=== PATIENT | male | born 1950 | race Caucasian/White ===

== ENCOUNTER 2016-05-08 11:21 | Inpatient (IN) ==
[2016-05-08] MEDS ORDERED: *HR* Enoxaparin 120 MG/0.8 ML SYRINGE SQ STA (11:31)
--- NOTE | 2016-05-08 11:37 | Emergency Department Note ---
Disposition Clinical Impression: Atrial flutter Qualifiers: Atrial flutter type: unspecified Qualified Code(s): I48.92 - Unspecified atrial flutter Disposition: Admitted As Inpatient Condition: Good Referrals: Isaias Andrea MD [Primary Care Provider] - Forms: ED Satisfaction Letter Time of Disposition: 12:26 Arrhythmia/Palpitations HPI - General Chief Complaint: ED Recheck/Abnormal Lab/Rx Stated Complaint: abnormal EKG Time Seen by Provider: 05/08/16 11:26 Source: patient, family Limitations: no limitations Nursing Notes Reviewed: Yes Vital Signs Reviewed: Yes - History of Present Illness HPI Narrative: 65-year-old presents with a rapid heartbeat for the last 3 months. Patient was seen at the urgent care and sent here for evaluation. Pt Subjective Complaint: rapid heart beat Onset (ago): month(s) (3) Duration: constant Severity: moderate Context: occurred during rest Associated symptoms: Denies: chest pain, shortness of breath - Related Data Home Medications Medication Instructions Recorded Confirmed Aspirin 04/28/16 Blood Pressure Medication 04/28/16 Multivitamin 04/28/16 Vicodin 04/28/16 Previous Rx's Medication Instructions Recorded Metoprolol Succinate 25 mg PO DAILY #30 tab.er.24h 04/28/16 Sulfamethoxazole/Trimeth DS 1 each PO BID #20 tablet 04/28/16 [Bactrim DS] Allergies Allergy/AdvReac Type Severity Reaction Status Date / Time No Known Allergies Allergy Verified 04/28/16 17:33 Constitutional: Denies: fever, chills, weakness, weight change Eyes: Denies: eye pain, eye discharge, vision change ENT ED: Denies: ear pain, throat pain, dental pain, hearing loss, epistaxis, congestion, dysphagia Cardiovascular: Reports: other (Tachycardia). Denies: chest pain, palpitations , dyspnea on exertion, edema, syncope Respiratory: Denies: cough, dyspnea, wheezes, hemoptysis, stridor Gastrointestinal: Denies: abdominal pain, nausea, vomiting, diarrhea, constipation, hematemesis, melena, hematochezia Genitourinary: Denies: urgency, dysuria, frequency, hematuria Musculoskeletal: Denies: back pain, neck pain, arthralgia, myalgia Integumentary: Denies: rash, abrasion, lesions Neurological: Denies: headache, weakness, numbness, paresthesias, confusion, abnormal gait, vertigo Psychiatric: Denies: anxiety, depression, suicidal thoughts, homicidal thoughts , auditory hallucinations, visual hallucinations Endocrine: Denies: fatigue Hematological/Lymphatic: Denies: easy bleeding, easy bruising Allergic/Immunologic: Denies: facial swelling, urticaria Past Medical History - Past Medical History Medical history: Reports: hypertension Surgical history: Reports: non-contributory Psychiatric history: Reports: no psych history - Social History Smoking Status: Never smoker Smokeless Tobacco Status: No Alcohol use: Reports: occasionally Drug use: Reports: none Physical Exam - General Limitations: no limitations General appearance: alert, in no apparent distress - Head Head exam: atraumatic, normocephalic, normal inspection - Eye Eye exam: Present: normal appearance, PERRL, EOMI - ENT ENT exam: normal exam, normal oropharynx, mucous membranes moist - Neck Neck exam: Present: normal inspection, full ROM, trachea midline - Chest Chest inspection: Present: normal inspection, symmetric chest wall rise - Respiratory Respiratory exam: Present: normal lung sounds bilaterally - Cardiovascular Cardiovascular exam: Present: regular rate, tachycardia - Abdominal Exam Abdominal exam: Present: soft, Non-Tender. Absent: tenderness, distention, guarding, rebound, rigidity - Extremities Exam Extremities exam: Present: normal inspection, full ROM. Absent: tenderness, pedal edema - Expanded Lower Extremity Exam Neurovascular/Tendon exam: Absent: motor deficit, sensory deficit, tendon deficit Gait: not tested/not observed - Neurological Exam Neurological exam: Present: alert, oriented X3 - Psychiatric Psychiatric exam: Present: normal affect, normal mood - Skin Skin exam: Present: warm, dry, intact, normal color Course - Consultations Consultation #1: Discussed with , we will start Cardizem and obtain an echo. Admit to the hospitalist. Time: 12:25 Consultation #2: Discussed with Dr. Beckman, admit Time: 12:28 Vital Signs Temperature 97.5 F L 05/08/16 11:22 Pulse Rate 136 05/08/16 11:22 Respiratory Rate 18 05/08/16 11:22 Blood Pressure 156/105 05/08/16 11:22 O2 Sat by Pulse Oximetry 98 05/08/16 11:22 Temperature 97.5 F L 05/08/16 11:22 Pulse Rate 137 05/08/16 12:03 Respiratory Rate 20 05/08/16 12:03 Blood Pressure 114/89 05/08/16 12:03 O2 Sat by Pulse Oximetry 98 05/08/16 12:03 Oxygen Delivery Oxygen Delivery Room Air Arrhythmia/Palpitations - Lab Data Result diagrams: 05/08/16 11:37 05/08/16 11:37 Lab Results 05/08/16 05/08/16 05/08/16 Range/Units 11:37 11:37 11:37 WBC 5.5 (4.3-11.1) K/mcL RBC 4.44 (4.19-5.50) M/mcL Hgb 14.3 (12.9-16.9) g/dL Hct 42.9 (37.5-50.1) % MCV 96.6 (83.0-100.0) fL MCH 32.2 (28.0-33.3) pg MCHC 33.3 (31.6-35.5) g/dL RDW 12.6 (11.5-14.5) % Plt Count 168 (140-400) K/mcL MPV 10.4 (9.4-12.4) fL Immature Gran % 0.5 (0-4) % Seg Neutrophils % 51.5 % Lymphocytes % 35.0 % Monocytes % 11.1 % Eosinophils % 1.5 % Basophils % 0.4 % Neutrophils # 2.8 (1.6-8.9) K/mcL Lymphocytes # 1.9 (0.6-4.6) K/mcL Monocytes # 0.6 (0.0-1.3) K/mcL Eosinophils # 0.1 (0.0-0.6) K/mcL Basophils # 0.0 (0.0-0.2) K/mcL PT 10.8 (9.4-12.1) Seconds INR 1.0 APTT 31.1 (26.0-36.0) Seconds Sodium 137 (136-145) mEq/L Potassium 5.0 H (3.5-4.5) mEq/L Chloride 105 (98-109) mEq/L Carbon Dioxide 21 (19-29) mEq/L BUN 15 (8-26) mg/dL Creatinine 1.09 (0.72-1.25) mg/dL Est GFR ( Amer) > 60 (> 60) Est GFR (Non-Af Amer) > 60 (> 60) BUN/Creatinine Ratio 14 (6-26) Glucose 117 H (70-99) mg/dL Calculated Osmolality 286 (280-300) Calcium 9.1 (8.6-10.8) mg/dL Troponin I (0-0.03) ng/mL TSH 0.744 (0.350-4.840) mcIU/mL 05/08/16 Range/Units 11:37 WBC (4.3-11.1) K/mcL RBC (4.19-5.50) M/mcL Hgb (12.9-16.9) g/dL Hct (37.5-50.1) % MCV (83.0-100.0) fL MCH (28.0-33.3) pg MCHC (31.6-35.5) g/dL RDW (11.5-14.5) % Plt Count (140-400) K/mcL MPV (9.4-12.4) fL Immature Gran % (0-4) % Seg Neutrophils % % Lymphocytes % % Monocytes % % Eosinophils % % Basophils % % Neutrophils # (1.6-8.9) K/mcL Lymphocytes # (0.6-4.6) K/mcL Monocytes # (0.0-1.3) K/mcL Eosinophils # (0.0-0.6) K/mcL Basophils # (0.0-0.2) K/mcL PT (9.4-12.1) Seconds INR APTT (26.0-36.0) Seconds Sodium (136-145) mEq/L Potassium (3.5-4.5) mEq/L Chloride (98-109) mEq/L Carbon Dioxide (19-29) mEq/L BUN (8-26) mg/dL Creatinine (0.72-1.25) mg/dL Est GFR ( Amer) (> 60) Est GFR (Non-Af Amer) (> 60) BUN/Creatinine Ratio (6-26) Glucose (70-99) mg/dL Calculated Osmolality (280-300) Calcium (8.6-10.8) mg/dL Troponin I 0.00 (0-0.03) ng/mL TSH (0.350-4.840) mcIU/mL
[2016-05-08 11:49] LABS: Basophils % 0.4 %; Eosinophils # 0.1 K/mcL (0.0-0.6); Eosinophils % 1.5 %; Hematocrit 42.9 % (37.5-50.1); Hemoglobin 14.3 g/dL (12.9-16.9); Immature Granulocytes % 0.5 % (0-4); Lymphocytes # 1.9 K/mcL (0.6-4.6); Mean Corpuscular HGB Conc 33.3 g/dL (31.6-35.5); Mean Corpuscular Hemoglobin 32.2 pg (28.0-33.3); Mean Corpuscular Volume 96.6 fL (83.0-100.0); Mean Platelet Volume 10.4 fL (9.4-12.4); Monocytes # 0.6 K/mcL (0.0-1.3); Monocytes % 11.1 %; Neutrophils # 2.8 K/mcL (1.6-8.9); Platelet Count 168 K/mcL (140-400); Red Blood Count 4.44 M/mcL (4.19-5.50); Red Cell Distribution Width 12.6 % (11.5-14.5); Segmented Neutrophils % 51.5 %
[2016-05-08 11:55] LABS: Prothrombin Time 10.8 Seconds (9.4-12.1)
[2016-05-08 11:58] LABS: Activated Partial Thrombo Time 31.1 Seconds (26.0-36.0)
[2016-05-08 11:59] LABS: BUN/Creatinine Ratio 14 (6-26); Blood Urea Nitrogen 15 mg/dL (8-26); Calcium 9.1 mg/dL (8.6-10.8); Carbon Dioxide 21 mEq/L (19-29); Chloride 105 mEq/L (98-109); Glucose 117 mg/dL (70-99); Osmolality,Calculated 286 (280-300); Sodium 137 mEq/L (136-145); eGFR For African Americans > 60 (> 60); eGFR For Non-African Americans > 60 (> 60)
[2016-05-08 12:20] LABS: Thyroid Stimulating Hormone 0.744 mcIU/mL (0.350-4.840)
--- NOTE | 2016-05-08 13:08 | Cardiology Consult Note ---
Addendum entered and electronically signed by Devin Vang CNP 05/08/16 13:47: Xarelto $360/month, not affordable. Plan to start Coumadin this afternoon and will refer to [facility]. Original Note: <Devin Vang - Last Filed: 05/08/16 13:04> Date of Encounter: 05/08/16 Time of Encounter: 13:05 Assessment and Plan (1) Atrial flutter with rapid ventricular response Current Visit: Yes Status: Acute A-Flutter RVR, rate 130s. Per pt, ongoing for the past 3 months. Asymptomatic. Denies chest pain, palpitations, dyspnea, lower extremity edema. Reports loud snoring at night--will need sleep study as outpt, as NAGA is likely. Excessive alcohol intake, 1/5 gallon/day. TSH 0.744, K 5.0, Mag 2.3. Obtain echo to evaluate structure and function. Cardizem gtt started for rate control. Uptitrate to keep HR <100. CHADSVASC 2 (Age, HTN). Recommend anticoagulation. Discussed Coumadin vs. NOACs. Will pimentel check Xarelto. Dose of therapeutic lovenox given. Will start heparin gtt tonight. Await echo results and pimentel check before starting NOAC. Continue to follow. (2) Current Visit: Yes Status: Acute Cessation counseling given. Currently drinks 1/5 gallon/day. ALT 45, AST 44. Discussion w patient/family: The assessment and plan as outlined above was discussed with the patient and/or family members who expressed understanding and agreement. All questions were answered. Thank you for involving us in the care of your patient. Please call with any questions. I will discuss all the above with Dr. Ponce and make changes as necessary. History of Present Illness Consult date: 05/08/16 Requesting physician: Herve Kam Consult reason: A-Flutter RVR Chief complaint: Palpitations History of present illness: Mr. Marie is a 65 year old male with PMH of HTN, alcohol abuse that presents from PCP office for A-Flutter with RVR. Per pt, HR has been 120s-130s for the past 3 months when checked at visits, but no EKG obtained until this AM. He denies dyspnea or chest pain. He is asymptomatic. He and report a lot of snoring at night--has never had a sleep study or been diagnosed with sleep apnea. He reports intake of whiskey daily--1/5 of a gallon. He denies lower extremity edema. HR currently 130s. Past Med Surg Social Fam HX - Past Medical History Medical history: hypertension Psychiatric history: no psych history - Past Surgical History Surgical History: non-contributory - Social History Smoking Status: Never smoker Smokeless Tobacco Status: No Alcohol use: occasionally, heavy (1/5 of whisky per day) Drug use: none Medications and Allergies Allopurinol [Zyloprim 100 MG] 100 mg PO QPM 05/08/16 [History] Amlodipine [Norvasc] 5 mg PO QAM 05/08/16 [History] Aspirin [Ecotrin] 325 mg PO QAM 05/08/16 [History] HYDROcodone/Acet 5/325 mg [[place] 5-325 mg] 1 tab PO Q6H PRN 05/08/16 [History] Lisinopril [Zestril] 20 mg PO QAM 05/08/16 [History] Loratadine [Allergy Relief] 10 mg PO QAM 05/08/16 [History] Metoprolol XL (24 HR) Succ [Toprol XL] 25 mg PO QPM 05/08/16 [History] Allergies No Known Allergies Allergy (Verified 04/28/16 17:33) All Systems Review: A 10-system review of systems was performed and is negative for pertinent findings except as documented above in the HPI. - Cardiovascular Cardiovascular: as per HPI, rapid heart rate Physical Examination Vital Signs, Last 4 Hours Pulse Resp BP Pulse Ox 05/08/16 12:54 96 20 116/75 97 05/08/16 12:45 20 114/89 Vital Signs Temp Pulse Resp BP Pulse Ox 05/08/16 12:54 96 20 116/75 97 05/08/16 12:45 20 114/89 05/08/16 12:03 137 20 114/89 98 05/08/16 11:40 133 20 143/98 96 05/08/16 11:22 97.5 F L 136 18 156/105 98 Intake and Output 05/07/16 05/08/16 05/08/16 23:59 07:59 15:59 Other: Weight 108.862 kg Patient Weight 05/08/16 23:59 Weight 108.862 kg General: Conversant, No Apparent Distress HEENT: Atraumatic, Normocephaly, Mucus Membranes Moist Neck: No JVD, Normal carotid pulses Cardiac: Other (irregular) Lungs: Normal Breath Sounds, No Wheeze, Rales, Rhonchi Neuro: Alert and responsive, No focal deficits noted Abdomen: Soft, Non-Tender Skin: No rashes noted on visualized skin Musculoskeletal: No Chest Wall Tenderness Extremities: No Clubbing, No Cyanosis, No Edema, Normal Pulses Results 05/08/16 11:37 05/08/16 11:37 Short CBC 05/08/16 Range/Units 11:37 WBC 5.5 (4.3-11.1) K/mcL Hgb 14.3 (12.9-16.9) g/dL Hct 42.9 (37.5-50.1) % Plt Count 168 (140-400) K/mcL Neutrophils # 2.8 (1.6-8.9) K/mcL BMP 05/08/16 Range/Units 11:37 Sodium 137 (136-145) mEq/L Potassium 5.0 H (3.5-4.5) mEq/L Chloride 105 (98-109) mEq/L Carbon Dioxide 21 (19-29) mEq/L BUN 15 (8-26) mg/dL Creatinine 1.09 (0.72-1.25) mg/dL Glucose 117 H (70-99) mg/dL Calcium 9.1 (8.6-10.8) mg/dL Cardiac Enzymes 05/08/16 Range/Units 11:37 Troponin I 0.00 (0-0.03) ng/mL Liver Function 05/08/16 Range/Units 11:37 AST 44 H (5-34) Units/L ALT 45 (0-55) Units/L Impressions Chest X-Ray 05/08/16 11:31 IMPRESSION: Stable chronic cardiomegaly, without acute airspace consolidation or CHF. D/ / 05/08/2016 12:12:07 Sancho Mann MD / bcarter Interpreting Provider: Sancho Mann MD Active Medications Diltiazem HCl 125 mg/ Dextrose 125 mls @ 5 mls/hr IVC .Q24H ANTHONY PRN Reason: 5 MG/HR Stop: 11/07/16 11:46 Last Admin: 05/08/16 11:57 Dose: 5 mg/hr, 5 mls/hr - Imaging and Cardiology Chest Xray: report reviewed - EKG Interpretation EKG results cardiology: personally reviewed (A-Flutter with RVR, rate 130s) Consult Discharge Plan - Plan Referrals: Isaias Andrea MD [Primary Care Provider] - <Vince Ponce - Last Filed: 05/08/16 14:03> Date of Encounter: 05/08/16 Assessment and Plan Discussion w patient/family: The assessment and plan as outlined above was discussed with the patient and/or family members who expressed understanding and agreement. All questions were answered. Thank you for involving us in the care of your patient. Please call with any questions. History of Present Illness History of present illness: Mr. Marie is a 65 year old male All Systems Review: A 10-system review of systems was performed and is negative for pertinent findings except as documented above in the HPI. Physical Examination Vital Signs, Last 4 Hours Temp Pulse Resp BP Pulse Ox 05/08/16 13:48 97.4 F L 136 14 134/88 97 05/08/16 12:54 96 20 116/75 97 05/08/16 12:45 20 114/89 Results 05/08/16 11:37 05/08/16 11:37 - Attending Attestation For this encounter, I have reviewed the MANAGER ADMINISTRATIVE or PA documentation, treatment plan, and medical decision making; and I have had face to face time with this patient. Pt here for an abnormal EKG denies any palpitations, CP , sob, syncope EKG in ER reviewed by me; appears to show aflutter 2:1. no signs of ischemia VSS JVD: 6.7 cm Chest : clear CVS: RRR , no murmur EKG: reviewed by me shows aflutter 2:1, did not slow with carotid massage Plan; anti coag a/w Cardiazem check echo watch for DTs ( etoh- most likely cause of afib) will probably need a sleep study on an op basis . Thanks !
[2016-05-08 13:14] LABS: Alanine Aminotransferase 45 Units/L (0-55); Aspartate Amino Transferase 44 Units/L (5-34); Magnesium 2.3 mg/dL (1.6-2.6)
[2016-05-08] MEDS ORDERED: Ondansetron 4 MG/2 ML VIAL IVP PRN (13:44)
[2016-05-08] MEDS ORDERED: Naloxone 0.4 MG/ML INJ IVP PRN (13:44)
[2016-05-08] MEDS ORDERED: *HR* LORazepam 2 MG/ML VIAL IVP PRN ×3 (13:50→15:48)
[2016-05-08] MEDS ORDERED: 0.9 % Sodium Chloride 1,000 ML ONE (13:54)
--- NOTE | 2016-05-08 13:55 | Internal Med History&Physical ---
Date of Encounter: 05/08/16 Time of Encounter: 12:50 Assessment and Plan (1) Atrial flutter with rapid ventricular response Current visit: Yes Status: Acute Aflutter with RVR at 120-130bpm Initially there was adequate control of rate with Cardizem 20mg IV bolus but is currently back in 130s Continue cardizem gtt, titrate to maintain HR<100 Patient received Lovenox 110mg (1mg/kg) SQ in the ER Cardiology eval appreciated Patient to be started on heparin drip this evening as per cardiology Outpatient anticoagulation as per cardiology f/u 2D echo (2) Alcohol abuse Current visit: Yes Status: Acute -Alcohol cessation counseling provided Patient does not see any harm in his behavior Will start Thiamine and Folic acid Closely monitor for alcohol withdrawal CIWA monitoring Ativan prn withdrawals (3) Hypertension Current visit: Yes Status: Chronic BP within acceptable range continue home medications Qualifiers: Hypertension type: essential hypertension Qualified Code(s): I10 - Essential (primary) hypertension (4) DVT prophylaxis Current visit: Yes Status: Acute Anticoagulated with Lovenox To start Heparin drip in evening Internal Medicine - H&P: HPI Chief complaint: sent from PMD for Aflutter Admitted From: Home Plans for Post Hospital Care: Home History of present illness: Mr. Marie is a 65 year old male with past medical history of hypertension, alcohol abuse, gout who was sent to the ER by PCP for evaluation of a flutter with RVR. As per patient, he has been having heart rate in 120s to 130s for the last 3 months every time he went to his primary care physician's office. She denies any symptoms, no chest pain, no shortness of breath, palpitations, dizziness, lightheadedness. He reports of drinking whiskey daily. At this time is resting comfortably in bed and states he feels well. Denies any headache, chest pain, shortness breath, abdominal pain, nausea, vomiting, fever , or chills. Past Med Surg Social Fam HX - Past Medical History Medical history: hypertension Psychiatric history: no psych history - Past Surgical History Surgical History: non-contributory - Social History Smoking Status: Never smoker Smokeless Tobacco Status: No Alcohol use: occasionally, heavy (1/5 of whisky per day) Drug use: none Internal Medicine - H&P: Meds Allopurinol [Zyloprim 100 MG] 100 mg PO QPM 05/08/16 [History] Amlodipine [Norvasc] 5 mg PO QAM 05/08/16 [History] Aspirin [Ecotrin] 325 mg PO QAM 05/08/16 [History] HYDROcodone/Acet 5/325 mg [[place] 5-325 mg] 1 tab PO Q6H PRN 05/08/16 [History] Lisinopril [Zestril] 20 mg PO QAM 05/08/16 [History] Loratadine [Allergy Relief] 10 mg PO QAM 05/08/16 [History] Metoprolol XL (24 HR) Succ [Toprol XL] 25 mg PO QPM 05/08/16 [History] Allergies No Known Allergies Allergy (Verified 04/28/16 17:33) All Systems PM: A 10-system review of systems was performed and is negative for pertinent findings except as documented above in the HPI. - Constitutional Constitutional: as per HPI - Constitutional Vitals: Temp Pulse Resp BP Pulse Ox 97.4 F L 136 14 134/88 97 05/08/16 13:48 05/08/16 13:48 05/08/16 13:48 05/08/16 13:48 05/08/16 13:48 General appearance: Present: A&O X 3, no acute distress, obese, answers questions appropriately - Head Head exam: Present: atraumatic, normocephalic - Eye Eye exam: Present: normal appearance, conjuntiva pink, sclera anicteric - Respiratory Respiratory exam: Present: CTAB. Absent: respiratory distress, wheezes - Cardiovascular Cardiovascular exam: Present: irregular rhythm, +S1, +S2, tachycardia - GI/Abdominal GI/Abdominal exam: Present: normal bowel sounds, soft. Absent: distended, tenderness - Extremities Exam Extremities exam: Present: warm, radial pulses palpable and symetrical. Absent : calf tenderness, pedal edema, tenderness - Neurological Exam Neurological exam: Present: alert, oriented X3 - Psychiatric Psychiatric exam: Present: normal affect, normal mood Internal Med - H&P Results - Labs CBC & Chem 7: 05/08/16 11:37 05/08/16 11:37
[2016-05-08] MEDS: Thiamine (B-1) 100 MG TABLET PO SCH (14:17)
[2016-05-08] MEDS: Folic Acid 1 MG TABLET PO SCH (14:17)
[2016-05-08] MEDS: Metoprolol XL (24 HR) Succ 25 MG TAB.ER.24H PO SCH (17:25)
[2016-05-08] MEDS ORDERED: *HR* Warfarin 7.5 MG TABLET PO ONE (18:00)
[2016-05-08] MEDS ORDERED: Warfarin perPT PO PRN (18:00)
[2016-05-08] MEDS: *HR* HYDROcodone/Acet 5/325 mg TABLET PO PRN (18:19)
[2016-05-09] MEDS ORDERED: *HR* Heparin 5,000 UNIT/ML VIAL IVP PRN (00:30)
[2016-05-09] MEDS ORDERED: *HR* Heparin 5,000 UNIT/ML VIAL IVP ONE (00:30)
[2016-05-09] MEDS: Heparin 25,000 UNIT/500 ML D5W 25,000 UNIT/500 ML MLS IVC SCH ×2 (02:40→18:07)
--- NOTE | 2016-05-09 08:13 | ECHO - Doppler Report ---
Echocardiogram Name: Marin Marie Date of Study: 05/08/2016 Date: 1950 Ht: 71.0 in Medical Record#: [id number] Age: 65 Wt: 240.0 lb Gender: Male BSA: 2.28 Order #: [id number] Location: [facility] Room #: [id number] Reading Physician: Heber Rooney DO, ASHLEE, JE CUBA [employer] Treasurer: Adriana Poe RDCS Ordering Physician: Devin Vang CNP Primary Physician: Isaias Andrea MD Indications: A-Flutter Impressions: Technically sub-optimal due to clinical status and poor windows. Atrial fluttern with RVR. Difficult to determined LV function due to suboptimal image quality and tachycardia. Overall, LV function appears mildly reduced, LVEF 45%. Mild global left ventricular systolic dysfunction. Indeterminate diastolic function. Mildly dilated right ventricle with normal appearing function. Moderate to severely dilated left atrium. No evidence of pulmonary hypertension identified. RVSP was not well obtained. No significant valvular disease identified. Recommend a repeat limited study with Definity to evaluate LV function when HR better controlled. Left Ventricular Wall Motion: Rest Echo Findings The apex, apical inferior, mid inferior, basal inferior, apical anterior, mid anterior, basal anterior, apical septal, mid inferior septal, basal inferior septal, apical lateral, mid anterior lateral, basal anterior lateral, mid anterior septal, mid inferior lateral, basal anterior septal and basal inferior lateral cat were hypokinetic. Findings: Study Quality * Technically sub-optimal due to clinical status and poor windows. ECG Findings * Atrial fluttern with RVR. Left Ventricle * Difficult to determined LV function due to suboptimal image quality and tachycardia. Overall, LV function appears mildly reduced, LVEF 45%. * Normal LV chamber size and wall thickness. * Mild global left ventricular systolic dysfunction. * Indeterminate diastolic function. Right Ventricle * Mildly dilated right ventricle with normal appearing function. Left Atrium * Moderate to severely dilated left atrium. Right Atrium * Moderate to severely dilated right atrium. Interatrial Septum * Interatrial septum not well evaluated. Aortic Valve * Aortic valve not well visualized. * No aortic regurgitation. * No aortic stenosis. Mitral Valve * Mildly thickened mitral valve leaflets. * Trace mitral regurgitation. * No mitral stenosis. Tricuspid Valve * Normal tricuspid valve structure and function. * Trace tricuspid regurgitation. * No evidence of pulmonary hypertension identified. RVSP was not well obtained. Pulmonic Valve * Pulmonic valve is not well visualized. Aorta * Normally sized aortic root. Pericardium * The pericardium appears normal. IVC * The IVC is not well evaluated. Pulmonary Artery * Normal visualized portions of the main pulmonary artery. History Hypertension Family History of CAD Measurements: BP: 119/ 80 2D Normal Values RVIDd: 3.17 cm <2.7 cm IVSd: .90 cm 0.6 - 1.0 cm LVIDd: 5.94 cm 3.7 - 5.6 cm LVPWd: 1.05 cm 0.6 - 1.1 cm LVIDs: 3.21 cm 1.5 - 3.6 cm AO: 3.30 cm < 4.0 cm LA: 4.70 cm 2.0 - 4.0cm %FS: 46.00 cm >25 % LA volume: 85 Mitral Valve Peak E:1.17 m/sec Peak E' Lat Prince:20.14 cm/s Peak E' Med Prince:13.6 cm/s E/E' Lat Ratio:5.8 E/E' Med Ratio:8.6 Tricuspid Valve TV Regurg Peak Grad: 12.00mmHg TV Regurg Peak Prince: 1.71m/sec Updated by Heber Rooney DO, FACJonas, JE CUBA on 05/09/2016 8:05:57 AM electronically signed on 05/09/2016 8:07:01 AM with status of Final Wall Motion Monte: 1=Normal, 2=Hypokinesis, 3=Akinesis, 4=Dyskinesis, 5=Aneurysmal, 6=Hyperkinetic, X=Not Visualized (Blank)=Missing
[2016-05-09] MEDS: Thiamine (B-1) 100 MG TABLET PO SCH (08:43)
[2016-05-09] MEDS: Lisinopril 20 MG TABLET PO SCH (08:43)
[2016-05-09] MEDS: Loratadine 10 MG TABLET PO SCH (08:43)
[2016-05-09] MEDS: Folic Acid 1 MG TABLET PO SCH (08:43)
[2016-05-09 08:54] LABS: Basophils % 0.6 %; Eosinophils # 0.1 K/mcL (0.0-0.6); Eosinophils % 0.7 %; Hematocrit 43.6 % (37.5-50.1); Hemoglobin 14.5 g/dL (12.9-16.9); Immature Granulocytes % 0.1 % (0-4); Lymphocytes # 2.1 K/mcL (0.6-4.6); Lymphocytes % 30.3 %; Mean Corpuscular HGB Conc 33.3 g/dL (31.6-35.5); Mean Corpuscular Volume 96.2 fL (83.0-100.0); Mean Platelet Volume 10.5 fL (9.4-12.4); Monocytes # 0.8 K/mcL (0.0-1.3); Monocytes % 12.1 %; Neutrophils # 3.9 K/mcL (1.6-8.9); Platelet Count 165 K/mcL (140-400); Red Blood Count 4.53 M/mcL (4.19-5.50); Red Cell Distribution Width 12.5 % (11.5-14.5); Segmented Neutrophils % 56.2 %
[2016-05-09 08:59] LABS: INR 1.1; Prothrombin Time 11.4 Seconds (9.4-12.1)
[2016-05-09] MEDS ORDERED: Aspirin Enteric Coated 325 MG Tablet PO SCH (09:00)
[2016-05-09] MEDS ORDERED: amLODIPine 5 MG TABLET PO SCH (09:00)
[2016-05-09 09:04] LABS: Activated Partial Thrombo Time 81.7 Seconds (26.0-36.0)
[2016-05-09 09:10] LABS: BUN/Creatinine Ratio 10 (6-26); Blood Urea Nitrogen 9 mg/dL (8-26); Calcium 9.5 mg/dL (8.6-10.8); Carbon Dioxide 22 mEq/L (19-29); Chloride 105 mEq/L (98-109); Chol/HDL Ratio 2.4 (0-4.9); Cholesterol 175 mg/dL (< 200); Glucose 119 mg/dL (70-99); HDL Cholesterol 74 mg/dL (40-59); LDL Cholesterol,Calculated 74 mg/dL (0-99); Magnesium 2.2 mg/dL (1.6-2.6); Osmolality,Calculated 284 (280-300); Phosphorous 3.5 mg/dL (2.3-4.7); Potassium 4.3 mEq/L (3.5-4.5); Sodium 137 mEq/L (136-145); Triglycerides 136 mg/dL (< 150); eGFR For African Americans > 60 (> 60); eGFR For Non-African Americans > 60 (> 60)
--- NOTE | 2016-05-09 10:23 | Internal Med Progress Note ---
Date of Encounter: 05/09/16 Time of Encounter: 10:21 - Assessment and plan (1) Atrial flutter with rapid ventricular response Current Visit: Yes Status: Acute Assessment and plan: A flatter with rapid ventricular response likely exacerbated by alcohol Continue metoprolol and Cardizem oral, may discontinue Cardizem drip later today if cardiology agrees Anticoagulation continued with heparin, Coumadin started May discharge in the morning if stable (2) Alcohol abuse Current Visit: Yes Status: Acute Assessment and plan: Continue Librium taper Use Ativan as needed (3) Hypertension Current Visit: Yes Status: Chronic Assessment and plan: Stable Qualifiers: Hypertension type: essential hypertension Qualified Code(s): I10 - Essential (primary) hypertension (4) Hyperkalemia Current Visit: Yes Status: Acute Assessment and plan: Resolved (5) DVT prophylaxis Current Visit: Yes Status: Acute - Time Spent With Patient Greater than 35 minutes - Subjective Interval history: The patient denies any palpitations, chest pain, shortness of breath, no abdominal pain, no dysuria. Says that he sweats a little bit when he does not drink - Constitutional Vitals: Temp Pulse Resp BP Pulse Ox 97.8 F 61 16 110/70 97 05/09/16 08:11 05/09/16 08:11 05/09/16 08:11 05/09/16 08:11 05/09/16 08:11 General appearance: Present: A&O X 3, no acute distress, obese, answers questions appropriately - Head Head exam: Present: atraumatic, normocephalic - Eye Eye exam: Present: PERRL, conjuntiva pink, sclera anicteric Pupils: Present: PERRL - Neck Neck exam general surgery: Present: supple, trachea midline. Absent: lymphadenopathy - Respiratory Respiratory exam: Present: CTAB. Absent: accessory muscle use, rales, rhonchi, wheezes - Cardiovascular Cardiovascular exam: Present: irregular rhythm, RRR, +S1, +S2, tachycardia. Absent: diastolic murmur, gallop, rubs, systolic murmur - GI/Abdominal GI/Abdominal exam: Present: normal bowel sounds, soft, no peritoneal signs. Absent: distended, tenderness - Extremities Exam Extremities exam: Present: warm, radial pulses palpable and symetrical. Absent : calf tenderness, cyanotic, pedal edema - Neurological Exam Neurological exam: Present: CN II-XII intact, oriented X3, no focal deficits. Absent: pronater drift, facial droop, speech deficit - Skin Skin exam: Present: dry, intact Internal Medicine: Result - Labs CBC & Chem 7: 05/09/16 08:40 05/09/16 08:40 Labs: Short CBC 05/09/16 Range/Units 08:40 WBC 6.9 (4.3-11.1) K/mcL Hgb 14.5 (12.9-16.9) g/dL Hct 43.6 (37.5-50.1) % Plt Count 165 (140-400) K/mcL Neutrophils # 3.9 (1.6-8.9) K/mcL BMP 05/09/16 08:40 Sodium 137 Potassium 4.3 Chloride 105 Carbon Dioxide 22 BUN 9 Creatinine 0.88 Glucose 119 H Calcium 9.5 - ABG Interpretation ABG results: PT/INR, D-dimer PT 11.4 Seconds (9.4-12.1) 05/09/16 08:40 Consult Discharge Plan - Plan Referrals: Isaias Andrea MD [Primary Care Provider] -
[2016-05-09] MEDS: Diltiazem CD (24hr) 240 MG CAPSULE PO SCH (10:29)
--- NOTE | 2016-05-09 10:35 | Cardiology Progress Note ---
Date of Encounter: 05/09/16 Time of Encounter: 10:33 Assessment and Plan (1) Atrial flutter with rapid ventricular response Current Visit: Yes Status: Acute A-Flutter RVR, rate 130s. Per pt, ongoing for the past 3 months. Asymptomatic. Denies chest pain, palpitations, dyspnea, lower extremity edema. Reports loud snoring at night--will need sleep study as outpt, as NAGA is likely. Excessive alcohol intake, 1/5 gallon/day. TSH and electrolytes normal. Echo was technically suboptimal due to clinical status and poor windows--in A- Flutter with RVR. EF appears mildly reduced EF 45%--mild global. Mildly dilated RV, mod-severely dilated LA, no significant valvular dysfunction. Mildly reduced EF likely tachycardia and alcohol induced, as he has reportedly been in RVR over the past 3 months. Denies chest pain. No ischemic work-up necessary at this time. Will recheck limited echo today now that he is rate controlled. Cardizem gtt at 10mg/hr. HR 70s-90s on tele. 12 hour tele AVG HR 88--transition to PO Cardizem CD 240mg daily, D/C gtt 2 hours after PO dose. Continue Toprol XL 25mg daily. CHADSVASC 2 (Age, HTN). Recommend anticoagulation. Xarelto is not affordable--$ 360/month. Agrees to Coumadin with management [facility]. Referral sent. Coumadin was started last night--on heparin gtt. Continue to follow. (2) Alcohol abuse Current Visit: Yes Status: Acute Cessation counseling given. Management per primary service. (3) Hypertension Current Visit: Yes Status: Chronic Controlled. Stop Norvasc since he is on Cardizem. Qualifiers: Hypertension type: essential hypertension Qualified Code(s): I10 - Essential (primary) hypertension Discussion w patient/family: The assessment and plan as outlined above was discussed with the patient and/or family members who expressed understanding and agreement. All questions were answered. Thank you for involving us in the care of your patient. Please call with any questions. I will discuss all the above with Dr. Ponce and make changes as necessary. Subjective Principal diagnosis: A-Flutter RVR Interval history: Pt denies any complaints this AM. 12 hour tele AVG HR 88, A-Flutter. Currently on Cardizem gtt at 10mg/hr. Echo resulted--technically suboptimal due to clinical status and poor windows--in A-Flutter with RVR. EF appears mildly reduced EF 45%--mild global. Mildly dilated RV, mod-severely dilated LA, no significant valvular dysfunction. Objective Vital Signs, Last 4 Hours Temp Pulse Resp BP Pulse Ox 05/09/16 08:11 97.8 F 61 16 110/70 97 Vital Signs Temp Pulse Resp BP Pulse Ox 05/09/16 08:11 97.8 F 61 16 110/70 97 05/09/16 04:45 98.7 F 101 14 115/80 96 05/09/16 03:20 87 126/70 96 05/09/16 03:00 107 157/107 96 05/09/16 02:20 85 128/75 05/09/16 01:40 140/87 05/09/16 00:50 77 150/49 05/09/16 00:20 90 138/89 05/09/16 00:05 99 139/93 95 05/08/16 23:50 98.3 F 85 16 126/77 96 05/08/16 23:10 72 18 131/83 97 05/08/16 20:56 98.1 F 57 18 139/92 97 05/08/16 18:23 119/80 05/08/16 17:14 139 122/89 05/08/16 16:22 98.3 F 133 14 126/90 96 05/08/16 14:50 120 118/78 05/08/16 14:30 97 05/08/16 13:48 97.4 F L 136 14 134/88 97 05/08/16 12:54 96 20 116/75 97 05/08/16 12:45 20 114/89 05/08/16 12:03 137 20 114/89 98 05/08/16 11:40 133 20 143/98 96 05/08/16 11:22 97.5 F L 136 18 156/105 98 Intake and Output 05/08/16 05/09/16 05/09/16 23:59 07:59 15:59 Intake Total 355 / 355 95 / 95 830 / 830 Output Total 1675 / 1675 550 / 550 1350 / 1350 Balance -1320 / -1320 -455 / -455 -520 / -520 Intake: IV Fluids 115 / 115 / 95 30 / 30 Cardizem 125 MG In 115 / 115 95 / 95 30 / 30 Dextrose 5% 100 ML @ 5 MG /HR 5 mls/hr IVC .Q24H [facility] Rx#:[id number] Oral 240 / 240 800 / 800 Output: Urine 1675 / 1675 550 / 550 1350 / 1350 Other: Meal Dinner Breakfast Percent of Meal Consumed 100% 100% # Voids 2 General: Conversant, No Apparent Distress HEENT: Atraumatic, Normocephaly, Mucus Membranes Moist Neck: No JVD, Normal carotid pulses Cardiac: Other (irregular) Lungs: Normal Breath Sounds, No Wheeze, Rales, Rhonchi Neuro: Alert and responsive, No focal deficits noted Abdomen: Soft, Non-Tender Skin: No rashes noted on visualized skin Musculoskeletal: No Chest Wall Tenderness Extremities: No Clubbing, No Cyanosis, No Edema, Normal Pulses Results 05/09/16 08:40 05/09/16 08:40 Lab Results 05/08/16 05/09/16 05/09/16 22:29 08:40 08:40 WBC 6.9 Hgb 14.5 Hct 43.6 Plt Count 165 INR APTT 35.3 Sodium 137 Potassium 4.3 Chloride 105 Carbon Dioxide 22 BUN 9 Creatinine 0.88 Glucose 119 H Calcium 9.5 Magnesium 2.2 05/09/16 08:40 WBC Hgb Hct Plt Count INR 1.1 APTT 81.7 H D Sodium Potassium Chloride Carbon Dioxide BUN Creatinine Glucose Calcium Magnesium Short CBC 05/09/16 05/08/16 Range/Units 08:40 11:37 WBC 6.9 5.5 (4.3-11.1) K/mcL Hgb 14.5 14.3 (12.9-16.9) g/dL Hct 43.6 42.9 (37.5-50.1) % Plt Count 165 168 (140-400) K/mcL Neutrophils # 3.9 2.8 (1.6-8.9) K/mcL BMP 05/09/16 05/08/16 Range/Units 08:40 11:37 Sodium 137 137 (136-145) mEq/L Potassium 4.3 5.0 H (3.5-4.5) mEq/L Chloride 105 105 (98-109) mEq/L Carbon Dioxide 22 21 (19-29) mEq/L BUN 9 15 (8-26) mg/dL Creatinine 0.88 1.09 (0.72-1.25) mg/dL Glucose 119 H 117 H (70-99) mg/dL Calcium 9.5 9.1 (8.6-10.8) mg/dL Cardiac Enzymes 05/08/16 Range/Units 11:37 Troponin I 0.00 (0-0.03) ng/mL Liver Function 05/08/16 Range/Units 11:37 AST 44 H (5-34) Units/L ALT 45 (0-55) Units/L Impressions Chest X-Ray 05/08/16 11:31 IMPRESSION: Stable chronic cardiomegaly, without acute airspace consolidation or CHF. D/ / 05/08/2016 12:12:07 Sancho Mann MD / [email or web address] Interpreting Provider: Sancho Mann MD Active Medications Acetaminophen/Hydrocodone Bitart ([place] 5-325 Mg) 1 tab PO Q6H PRN PRN Reason: Pain Stop: 11/07/16 13:47 Last Admin: 05/08/16 18:19 Dose: 1 tab Allopurinol (Zyloprim) 100 mg PO QPM [facility] Stop: 11/07/16 18:01 Last Admin: 05/08/16 17:25 Dose: 100 mg Amlodipine Besylate (Norvasc) 5 mg PO QAM [facility] PRN Reason: Protocol Stop: 11/08/16 09:01 Last Admin: 05/09/16 08:43 Dose: 5 mg Aspirin (Aspirin Ec) 325 mg PO QAM [facility] Stop: 11/08/16 09:01 Last Admin: 05/09/16 08:43 Dose: 325 mg Chlordiazepoxide HCl (Librium) 25 mg PO QID [facility] Stop: 11/08/16 13:01 Diltiazem HCl (Cardizem Cd) 240 mg PO DAILY [facility] Stop: 11/08/16 10:01 Folic Acid (Folic Acid) 1 mg PO DAILY [facility] Stop: 11/07/16 14:01 Last Admin: 05/09/16 08:43 Dose: 1 mg Heparin Sodium (Porcine) (Heparin) 7,600 unit 70 unit/kg (7600 unit) IVP Q6HR PRN PRN Reason: SEE COMMENTS Stop: 11/08/16 00:31 Heparin Sodium (Porcine) (Heparin) 3,800 unit 35 unit/kg (3800 unit) IVP Q6H PRN PRN Reason: SEE COMMENTS Stop: 11/08/16 00:31 Heparin Sodium/Dextrose (Heparin 25,000 Unit/500 Ml D5w) 25,000 unit in 500 mls @ 30.481 mls/hr IVC .[id number] [facility]; 14 UNIT/KG/HR PRN Reason: Protocol Stop: 11/08/16 00:31 Last Admin: 05/09/16 02:40 Dose: 14 unit/kg/hr, 30.481 mls/hr Diltiazem HCl 125 mg/ Dextrose 125 mls @ 5 mls/hr IVC .Q24H [facility]; 5 MG/HR PRN Reason: Protocol Stop: 05/09/16 12:30 Last Admin: 05/09/16 09:07 Dose: 10 mg/hr, 10 mls/hr Lisinopril (Zestril) 20 mg PO QAM [facility] PRN Reason: Protocol Stop: 11/08/16 09:01 Last Admin: 05/09/16 08:43 Dose: 20 mg Loratadine (Claritin) 10 mg PO QAM [facility] PRN Reason: Protocol Stop: 11/08/16 09:01 Last Admin: 05/09/16 08:43 Dose: 10 mg Lorazepam (Ativan) 2 mg IVP Q4HR PRN PRN Reason: CIWA Score of 10-21 Stop: 11/07/16 15:49 Lorazepam (Ativan) 4 mg IVP Q4HR PRN PRN Reason: CIWA Score of 22-45 Stop: 11/07/16 15:49 Metoprolol Succinate (Toprol Xl) 25 mg PO QPM [facility] Stop: 11/07/16 18:01 Last Admin: 05/08/16 17:25 Dose: 25 mg Naloxone HCl (Narcan) 0.4 mg IVP Q2MIN PRN PRN Reason: Opioid Reversal Stop: 11/07/16 13:45 Ondansetron HCl (Zofran) 4 mg IVP Q6HR PRN PRN Reason: Nausea And Vomiting Stop: 11/07/16 13:45 Thiamine HCl (Vitamin B-1) 100 mg PO DAILY [facility] Stop: 11/07/16 14:01 Last Admin: 05/09/16 08:43 Dose: 100 mg Warfarin Sodium (Coumadin Perpt) 0 each PO DAILY@1800 PRN PRN Reason: SEE COMMENTS Stop: 11/07/16 18:01 - Imaging and Cardiology Echo: report reviewed - EKG Interpretation EKG results cardiology: other (12 hour tele AVG HR 88, A-Flutter.) Consult Discharge Plan - Plan Referrals: Isaias Andrea MD [Primary Care Provider] -
[2016-05-09] MEDS ORDERED: Perflutren Lipid Microsphere 1.3 ML in 0.9 % Sodium Chloride 8.7 ML IVP ONE (13:54)
[2016-05-09] MEDS ORDERED: Perflutren Lipid Microsphere 2 ML VIAL ONE (14:09)
--- NOTE | 2016-05-09 15:48 | ECHO - Doppler Report ---
Limited Echo with Imaging Enhancement Agent Name: Marin Marie Date of Study: 05/09/2016 Date: 1950 Ht: 71.0 in Medical Record#: [id number] Age: 65 Wt: 240.0 lb Gender: Male BSA: 2.28 Order #: [id number] Location: [facility] Room #: 2A47 Reading Physician: Heber Rooney DO, FACC, FASE, FASNC Load Haul Dump Operator: Sravani Bradford RVT Ordering Physician: Devin Vang CNP Primary Physician: Isaias Andrea MD Indications: Evaluate Ejection Fraction while heart rate is controlled Impressions: LVEF 45-50%. LV function is low normal/mildly reduced. Left Ventricular Wall Motion: Rest Echo Findings The apex, apical inferior, mid inferior, basal inferior, apical anterior, mid anterior, basal anterior, apical septal, mid inferior septal, basal inferior septal, apical lateral, mid anterior lateral, basal anterior lateral, mid anterior septal, mid inferior lateral, basal anterior septal and basal inferior lateral cat were hypokinetic. Findings: Study Quality * Technically adequate exam. ECG Findings * Atrial flutter. Left Ventricle * LVEF 45-50%. * Normal LV chamber size and wall thickness. LV function is low normal/mildly reduced. History Hypertension Family History of CAD 05-08-2016 a Previous Echo was performed. Contrast: Definity 1.3 ml in 8.7 ml of saline 2 ml. Measurements: BP: 116/ 78 2D Normal Values RVIDd: 4.00 cm <2.7 cm IVSd: 1.20 cm 0.6 - 1.0 cm LVIDd: 4.90 cm 3.7 - 5.6 cm LVPWd: 1.00 cm 0.6 - 1.1 cm LVIDs: 3.60 cm 1.5 - 3.6 cm AO: 3.40 cm < 4.0 cm LA: 5.30 cm 2.0 - 4.0cm %FS: 26.50 cm >25 % LA volume: Updated by Heber Rooney DO, FACC, FASE, FASNC on 05/09/2016 3:40:15 PM electronically signed on 05/09/2016 3:44:07 PM with status of Final Wall Motion [place]: 1=Normal, 2=Hypokinesis, 3=Akinesis, 4=Dyskinesis, 5=Aneurysmal, 6=Hyperkinetic, X=Not Visualized (Blank)=Missing
[2016-05-09] MEDS: *HR* Heparin 5,000 UNIT/ML VIAL IVP PRN (15:54)
[2016-05-09] MEDS ORDERED: *HR* Warfarin 7.5 MG TABLET PO ONE (17:00)
[2016-05-09] MEDS: Metoprolol XL (24 HR) Succ 25 MG TAB.ER.24H PO SCH (17:27)
[2016-05-09] MEDS: *HR* HYDROcodone/Acet 5/325 mg TABLET PO PRN (17:34)
[2016-05-10 06:01] LABS: INR 1.1; Prothrombin Time 11.5 Seconds (9.4-12.1)
[2016-05-10] MEDS: *HR* Heparin 5,000 UNIT/ML VIAL IVP PRN (06:17)
[2016-05-10] MEDS: Folic Acid 1 MG TABLET PO SCH (08:29)
[2016-05-10] MEDS: Lisinopril 20 MG TABLET PO SCH (08:29)
[2016-05-10] MEDS: Thiamine (B-1) 100 MG TABLET PO SCH (08:29)
[2016-05-10] MEDS: Diltiazem CD (24hr) 240 MG CAPSULE PO SCH (08:29)
[2016-05-10] MEDS: Loratadine 10 MG TABLET PO SCH (08:30)
[2016-05-10] MEDS ORDERED: Aspirin 81 MG TAB.CHEW PO SCH (09:00)
--- NOTE | 2016-05-10 09:01 | Cardiology Progress Note ---
Date of Encounter: 05/10/16 Time of Encounter: 08:46 Assessment and Plan (1) Atrial flutter with rapid ventricular response Current Visit: Yes Status: Acute A-Flutter RVR, rate 130s on presentation. Per pt, ongoing for the past 3 months. Asymptomatic. Reports loud snoring at night--will need sleep study as outpt, as NAGA is likely. Excessive alcohol intake, 1/5 gallon/day. TSH and electrolytes normal. HR now controlled on PO Cardizem 240mg daily and Toprol XL 25mg daily. Echo was technically suboptimal due to clinical status and poor windows--in A- Flutter with RVR. EF appears mildly reduced EF 45%--mild global. Mildly dilated RV, mod-severely dilated LA, no significant valvular dysfunction. Repeat limited study EF 45-50%. Mildly reduced EF likely tachycardia and alcohol induced, as he has reportedly been in RVR over the past 3 months. Denies chest pain. No ischemic work-up necessary at this time. CHADSVASC 2 (Age, HTN). Recommend anticoagulation. Xarelto is not affordable--$ 360/month. Agrees to Coumadin with management per [facility]. Referral sent. Recommend checking INR as outpt in 3 days--order placed in chart. Cardiology signing off. Reconsult PRN. Follow-up with Dr. Haynes in 4 weeks to discuss A-Flutter ablation. (2) Alcohol abuse Current Visit: Yes Status: Acute Cessation counseling given. Management per primary service. (3) Hypertension Current Visit: Yes Status: Chronic Controlled. Qualifiers: Hypertension type: essential hypertension Qualified Code(s): I10 - Essential (primary) hypertension Discussion w patient/family: The assessment and plan as outlined above was discussed with the patient and/or family members who expressed understanding and agreement. All questions were answered. Thank you for involving us in the care of your patient. Please call with any questions. I will discuss all the above with Dr. Ponce and make changes as necessary. Subjective Principal diagnosis: A-Flutter RVR Interval history: Pt denies any complaints this AM. 12 hour tele AVG HR 74 A-Flutter. Repeated limited echo shows EF 45-50%. Objective Vital Signs, Last 4 Hours Temp Pulse Resp BP Pulse Ox 05/10/16 07:49 97.6 F 71 18 120/76 97 05/10/16 06:09 97.5 F L 88 18 119/78 96 Vital Signs Temp Pulse Resp BP Pulse Ox 05/10/16 07:49 97.6 F 71 18 120/76 97 05/10/16 06:09 97.5 F L 88 18 119/78 96 05/10/16 01:25 97.8 F 78 16 135/87 97 05/09/16 20:30 97.7 F 61 18 124/84 96 05/09/16 16:01 98.0 F 79 16 101/62 96 05/09/16 12:03 97.8 F 70 16 116/78 96 Intake and Output 05/09/16 05/10/16 05/10/16 23:59 07:59 15:59 Intake Total 1160.3 / 1160.3 973 / 973 Output Total 2049 Balance 1160.3 / 1160.3 -1077 / -1077 Intake: IV Fluids 300.3 / 300.3 233 / 233 Cardizem 125 MG In 89.3 / 89.3 Dextrose 5% 100 ML @ 5 MG /HR 5 mls/hr IVC .Q24H [facility] Rx#:[id number] Heparin 25,000 UNIT/500 211 / 211 233 / 233 ML D5W 25,000 unit In 500 ml @ 14 UNIT/KG/HR 30. 481 mls/hr IVC .[id number] [facility] Rx#:[id number] Oral 860 / 860 740 / 740 Output: Urine 2049 Other: Meal Dinner Percent of Meal Consumed 100% Weight 107.955 kg Patient Weight 05/10/16 23:59 Weight 107.955 kg General: Conversant, No Apparent Distress HEENT: Atraumatic, Normocephaly, Mucus Membranes Moist Neck: No JVD, Normal carotid pulses Cardiac: Other (irregular) Lungs: Normal Breath Sounds, No Wheeze, Rales, Rhonchi Neuro: Alert and responsive, No focal deficits noted Abdomen: Soft, Non-Tender Skin: No rashes noted on visualized skin Musculoskeletal: No Chest Wall Tenderness Extremities: No Clubbing, No Cyanosis, No Edema, Normal Pulses Results 05/09/16 08:40 05/09/16 08:40 Lab Results 05/09/16 05/09/16 05/09/16 08:40 08:40 08:40 WBC 6.9 Hgb 14.5 Hct 43.6 Plt Count 165 INR 1.1 APTT 81.7 H D Sodium 137 Potassium 4.3 Chloride 105 Carbon Dioxide 22 BUN 9 Creatinine 0.88 Glucose 119 H Calcium 9.5 Magnesium 2.2 05/09/16 05/09/16 05/10/16 14:58 22:12 05:40 WBC Hgb Hct Plt Count INR 1.1 APTT 58.7 H 83.0 H Sodium Potassium Chloride Carbon Dioxide BUN Creatinine Glucose Calcium Magnesium 05/10/16 05:40 WBC Hgb Hct Plt Count INR APTT 54.6 H Sodium Potassium Chloride Carbon Dioxide BUN Creatinine Glucose Calcium Magnesium - Imaging and Cardiology Echo: report reviewed (EF 45-50%.) - EKG Interpretation EKG results cardiology: other (12 hour tele AVG HR 74, A-Flutter.) Consult Discharge Plan - Plan Referrals: Isaias Andrea MD [Primary Care Provider] -
[2016-05-10] MEDS: Heparin 25,000 UNIT/500 ML D5W 25,000 UNIT/500 ML MLS IVC SCH (09:30)
--- NOTE | 2016-05-10 15:25 | Discharge Summary ---
Date of Encounter: 05/10/16 Time of Encounter: 15:19 - Discharge Diagnosis (1) Atrial flutter with rapid ventricular response Priority: Primary Status: Acute Comments: A. fib with rapid ventricular response likely triggered/exacerbated by alcohol (2) Alcohol abuse Priority: Secondary Status: Acute (3) Hypertension Priority: Secondary Status: Chronic Qualifiers: Hypertension type: essential hypertension Qualified Code(s): I10 - Essential (primary) hypertension (4) Hyperkalemia Priority: Secondary Status: Acute (5) DVT prophylaxis Priority: Secondary Status: Acute - Discharge Medications Prescriptions: Chlordiazepoxide [Librium] 25 mg PO QID 8 Days Diltiazem CD (24hr) [Cardizem CD] 240 mg PO DAILY #30 cap.er.24h Metoprolol XL (24 HR) Succ [Toprol Xl] 25 mg PO QPM #30 tab.er.24h Home Medications: Allopurinol [Zyloprim 100 MG] 100 mg PO QPM 05/08/16 [History] Amlodipine [Norvasc] 5 mg PO QAM 05/08/16 [History] Aspirin [Ecotrin] 325 mg PO QAM 05/08/16 [History] HYDROcodone/Acet 5/325 mg [[place] 5-325 mg] 1 tab PO Q6H PRN 05/08/16 [History] Lisinopril [Zestril] 20 mg PO QAM 05/08/16 [History] Loratadine [Allergy Relief] 10 mg PO QAM 05/08/16 [History] Chlordiazepoxide [Librium] 25 mg PO QID 8 Days 05/10/16 [Rx] Diltiazem CD (24hr) [Cardizem CD] 240 mg PO DAILY #30 cap.er.24h 05/10/16 [Rx] Metoprolol XL (24 HR) Succ [Toprol Xl] 25 mg PO QPM #30 tab.er.24h 05/10/16 [Rx] Allergies/Adverse Reactions: Allergies No Known Allergies Allergy (Verified 04/28/16 17:33) Procedures/tests Complete & Pending: Procedures Performed prior 72 hours Category Date Time Status ECG 12 lead ECG [ECG] Routine Y 05/08/16 13:01 Completed EV limited echo w enhance Routine Y 05/09/16 12:02 Completed Date of admission: 02/03/17 13:44 Primary care physician: Isaias Andrea - Patient Status Disposition: Home, Self-Care Condition: Good Overall status at discharge: patient is back to baseline - Discharge Instructions Instructions: Atrial Flutter (DC) Follow Up With: Isaias Andrea MD [Primary Care Provider] - Additional Instructions: Follow with primary care physician within the next [address] Haynes from cardiology within the next 4 weeks to discuss ablation. Continue clonidine and check INR on 05/13/2016 and follow up at the Coumadin clinic. Complete Librium taper and avoid alcohol consumption while being on Librium. Continue Cardizem 240 mg daily with Toprol 25 mg daily - Diet and Activity Activity: increase activity as tolerated Diet: low fat, low cholesterol Hospital course: Mr. Marie is a 65 year old male with past medical history of hypertension, alcohol abuse, gout who was sent to the ER by PCP for evaluation of a flutter with RVR. As per patient, he has been having heart rate in 120s to 130s for the last 3 months every time he went to his primary care physician's office. He denies any symptoms, no chest pain, no shortness of breath, palpitations, dizziness, lightheadedness. He reports of drinking whiskey daily. Upon admission he was started on Lovenox and was continued on a heparin drip. A Cardizem drip was started which was switched to Cardizem oral 240 mg daily. Toprol was continued. He was explained that these episode was likely related to alcohol consumption. CHADSVASC 2 (Age, HTN). Recommend anticoagulation. Xarelto is not affordable--$ 360/month. Agreed to Coumadin with management per [facility]. Echo was technically suboptimal due to clinical status and poor windows--in A- Flutter with RVR. EF appears mildly reduced EF 45%--mild global. Mildly dilated RV, mod-severely dilated LA, no significant valvular dysfunction. Repeat limited study EF 45-50%. Mildly reduced EF likely tachycardia and alcohol induced Follow-up with Dr. Haynes in 4 weeks to discuss A-Flutter ablation. He was explained on the risks of continuing Librium with alcohol which he should avoid. - Time Spent with Patient Total time spent providing and/or coordinating discharge services: Greater than 30 minutes (40 minutes) - Constitutional Vitals: Temp Pulse Resp BP Pulse Ox 97.8 F 83 16 92/59 96 05/10/16 11:18 05/10/16 11:18 05/10/16 11:18 05/10/16 11:18 05/10/16 11:18 General appearance: Present: A&O X 3, no acute distress, obese, answers questions appropriately - Head Head exam: Present: atraumatic, normocephalic - Eye Eye exam: Present: PERRL, conjuntiva pink, sclera anicteric Pupils: Present: PERRL - Neck Neck exam general surgery: Present: supple, trachea midline. Absent: lymphadenopathy - Respiratory Respiratory exam: Present: CTAB. Absent: accessory muscle use, rales, rhonchi, wheezes - Cardiovascular Cardiovascular exam: Present: RRR, +S1, +S2. Absent: diastolic murmur, gallop, rubs, systolic murmur - GI/Abdominal GI/Abdominal exam: Present: normal bowel sounds, soft, no peritoneal signs. Absent: distended, tenderness - Extremities Exam Extremities exam: Present: warm, radial pulses palpable and symetrical. Absent : calf tenderness, cyanotic, pedal edema - Neurological Exam Neurological exam: Present: CN II-XII intact, oriented X3, no focal deficits. Absent: pronater drift, facial droop, speech deficit - Skin Skin exam: Present: dry, intact
[2016-05-10 15:33] VITALS: BP 106/68
--- NOTE | 2016-05-10 16:34 | Electrocardiograph Report ---
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
[2016-05-10] MEDS: Metoprolol XL (24 HR) Succ 25 MG TAB.ER.24H PO SCH (16:57)
[2016-05-10] MEDS ORDERED: *HR* Warfarin 7.5 MG TABLET PO ONE (18:00)
--- NOTE | 2016-05-10 20:13 | Electrocardiograph Report ---
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
== END 2016-05-10 17:01 | disposition home or self-care (01) | DRG 310 ==
LOC: 2ANU 11:21 → EMEROO 11:21 → 2ANU 13:26
PROVIDERS: ADMIT Internal Medicine; ATTEND Internal Medicine